=== PATIENT | female | born 1945 | race Caucasian/White ===

== ENCOUNTER 2022-04-01 14:02 | Outpatient (CLI) | payer MEDICARE | END 2022-04-01 14:03 | disposition home or self-care (01) | LOC: RAD-FRANK 14:02 | PROVIDERS: ATTEND Nurse Practitioner Family | DX: Z00.00 Encounter for general adult medical examination without abnormal findings (principal); M25.511 Pain in right shoulder; M19.011 Primary osteoarthritis, right shoulder ==